=== PATIENT | female | born 1950 | race African-American/Black ===

== ENCOUNTER 2019-04-14 05:58 | Day surgery (SDC) | payer MEDICARE ==
[2019-04-14] MEDS ORDERED: FENTANYL PF 100MCG/2ML VIAL IV ONE (05:59)
[2019-04-14] MEDS ORDERED: CEFAZOLIN 1G VIAL IVP ONE (05:59)
[2019-04-14] MEDS ORDERED: MIDAZOLAM HCL 2MG/2ML VIAL IV ONE (05:59)
[2019-04-14] MEDS ORDERED: PROPOFOL 10 MG/ML VIAL IV ONE (05:59)
[2019-04-14] MEDS ORDERED: LIDOCAINE 2% MDV (20MG/ML) 20ML VIAL IV ONE (05:59)
[2019-04-14] MEDS ORDERED: FAMOTIDINE 20MG TABLET PO ONE (06:00)
[2019-04-14] MEDS ORDERED: METOCLOPRAMIDE 10 MG TABLET PO ONE (06:00)
[2019-04-14] MEDS ORDERED: MECLIZINE 25 MG TABLET PO ONE (06:00)
[2019-04-14] MEDS ORDERED: CEFAZOLIN 2 Gram 2 GM/50 ML BAG IVPB ONE (06:00)
[2019-04-14] MEDS ORDERED: ACETAMINOPHEN 1,000 MG/100 ML BTL IVPB ONE (06:00)
--- NOTE | 2019-04-14 06:35 | History and Physical - Ferro ---
CHIEF COMPLAINT/HISTORY OF CHIEF COMPLAINT: This patient presents with a history of intractable post lumbar laminectomy syndrome. Due to the failure of all therapies on 07/12/15 a spinal cord stimulator system was implanted with a generator placed at the right posterior gluteal margin and the incisional sites are at T11-T12 and T12-L1. Over time although the system appeared to be working quite well it has most recently failed. Electronic analysis showed failure of the system with multiple electrode failures and battery failure. She was given the option to remove or remove and replace and she opted to remove and replace. This will involve electrodes and generator. PAST MEDICAL HISTORY: Macular degeneration, headaches, chronic obstructive pulmonary disease, hypertension, thrombophlebitis and gastritis. PAST SURGICAL HISTORY: Gallbladder, hysterectomy, laparoscopic surgery, and stimulator implant. MEDICATIONS ON ADMISSION: List to be provided. ALLERGIES: SULFA. FAMILY/PSYCHOSOCIAL HISTORY: Family history - Hypothyroidism, asthma, diabetes, coronary artery disease, cerebrovascular disease, and hypertension. Social history - Caffeine. SYSTEMS REVIEW: The patient is appropriate in no acute distress. The remainder of the systems review is noted. PHYSICAL EXAMINATION: Height is 4'11", weight is 130. No vital signs. HEENT: Within normal limits. LUNGS: Clear. HEART: Rapid and regular. ABDOMEN: Nontender. MUSCULOSKELETAL: Examination of the musculoskeletal system shows diffuse tenderness throughout the lumbar spine. Range of motion does produce the primary pain into both lower extremities. Mild motor and mild sensory abnormalities to both legs. Ambulation - Assistive device utilized. NEUROLOGIC: Cranial nerves are intact. IMPRESSION: 1. POST LUMBAR LAMINECTOMY SYNDROME, ICD-10 CODE M96.1 WITH LUMBAR RADICULOPATHY, ICD-10 CODE M54.16 AND M54.17. 2. NONFUNCTIONAL SPINAL CORD STIMULATOR AND INTERNAL GENERATOR. PLAN: The patient is here for removal and replacement of the stimulator and generator on an outpatient basis although an overnight stay will be evaluated based upon the amount of surgery. The potential risks, side effects and complications have all been carefully reviewed and discussed. JOB NUMBER: [id number] [facility]
[2019-04-14] MEDS ORDERED: RINGERS SOLUTION,LACTATED 1,000 ML IV ONE ×2 (06:45→08:30)
[2019-04-14] MEDS ORDERED: BUPIVACAINE 0.5% W/EPI MPF 30 ML VIAL SQ ONE (08:30)
[2019-04-14] MEDS ORDERED: LIDOCAINE 1% W/EPI 1:100,000 MDV 20 ML VIAL SQ ONE (08:30)
[2019-04-14] MEDS ORDERED: HYDROMORPHONE HCL 2 MG/ML VIAL IVP ONE ×2 (09:32)
[2019-04-14] MEDS ORDERED: HYDROCODONE/APAP 7.5/325MG TABLET PO PRN (11:30)
[2019-04-14] MEDS: HYDROCODONE/APAP 7.5/325MG TABLET PO PRN ×2 (12:01→15:12)
[2019-04-14] MEDS ORDERED: SENNOSIDES/DOCUSATE SODIUM UD CAPSULE PO PRN ×2 (16:15)
[2019-04-14] MEDS ORDERED: METOCLOPRAMIDE HCL 10 MG/2 ML VIAL IVP PRN (16:15)
[2019-04-14] MEDS ORDERED: DIPHENHYDRAMINE HCL 50 MG/ML VIAL IVP PRN ×2 (16:15)
[2019-04-14] MEDS ORDERED: TEMAZEPAM 15 MG CAPSULE PO PRN (16:15)
[2019-04-14] MEDS ORDERED: ACETAMINOPHEN 325 MG TAB PO PRN (16:15)
[2019-04-14] MEDS ORDERED: DIPHENHYDRAMINE HCL 25 MG CAPSULE PO PRN ×2 (16:15)
[2019-04-14] MEDS ORDERED: AL HYDROX/MAG HYDROX 30ML UD PO PRN (16:15)
[2019-04-14] MEDS ORDERED: HYDROMORPHONE HCL 2 MG/ML VIAL IM PRN ×2 (16:15)
[2019-04-14] MEDS ORDERED: METOCLOPRAMIDE 10 MG TABLET PO PRN (16:15)
[2019-04-15] MEDS ORDERED: PANTOPRAZOLE SODIUM 40 MG TABLET PO SCH (07:00)
[2019-04-15] MEDS ORDERED: COLCHICINE 0.6 MG TABLET PO SCH (10:00)
[2019-04-15] MEDS ORDERED: LOSARTAN POTASSIUM 25 MG TABLET PO SCH (10:00)
[2019-04-15] MEDS ORDERED: ATORVASTATIN 20 MG TABLET PO SCH (10:00)
--- NOTE | 2019-04-16 08:01 | Operative Note ---
DATE OF SURGERY: 04/14/2019 PREOPERATIVE DIAGNOSES: 1. Post lumbar laminectomy syndrome, ICD10 code M96.1 with radiculopathy, ICD10 code M54.16 and M54.17. 2. Implanted spinal cord stimulator internal generator nonfunctional. OPERATION: 1. Fluoroscopic-guided incision and subcutaneous dissection and removal of 2 implanted spinal cord stimulators. 2. Incision, subcutaneous dissection, and removal of internal pulse generator right posterior gluteal margin. 3. Epidural access T11-12 using Epimed curved access needle, loss of resistance, inadvertent dural puncture with CSF loss. 4. Fluoroscopic-guided reinsertion curved Epimed needle T11-12, placement of spinal cord stimulator lead 1 [employer] Infinion 16, 6 electrodes. 5. Fluoroscopic-guided epidural access using curved Epimed needle T12-L1, placement of spinal cord stimulator lead 2 [employer] Infinion 16, 6 electrodes. 6. Navigation of lead 1 and lead 2 to skin, difficulty with the inability to navigate leads to appropriate location. 7. Removal of 2 epidural leads. 8. Epidural blood patch 20 mL autologous blood stroke technique from the left antecubital at L3-4, 18-gauge Tuohy needle, loss of resistance for access. 9. Placement of dressings after Vicryl and staple closure of 2 incisional sites for previous removal. SURGEON: Baudilio Barrios, ANESTHESIA: Local with sedation. ANESTHESIA PROVIDER: Thomas uBrch INDICATION: This patient presents with a history of an intractable post lumbar laminectomy syndrome and a 2-lead spinal cord stimulator internal generator placed approximately 2-3 years ago. Over the last number of years, the system has started to malfunction. Initial placement 2014. Shew as given the option to remove or replace. She opted to replace. PROCEDURE: Intravenous line, vital sign monitoring, IV sedation. Prepped and draped with sterile technique. Patient positioned prone. Sterile prep, sterile technique. The epidural interspace at T12-L1 and 11-12 from the previous insertion infiltrated. Incision made and subcutaneous dissection was conducted to the 2 leads and the anchoring suture. The sutures removed, the 2 leads removed intact. At the right posterior gluteal margin generator pouch, skin infiltrated, incision made, and subcutaneous dissection was used to remove the generator intact. Antibiotic irrigation, Bovie for hemostasis. The epidural interspace at the previous sites T11-12 and 12-1 were then both infiltrated using 2 curved access Epimed needles with loss of resistance. At 11-12, the space was accessed with an inadvertent dural puncture and CSF loss. [place] reposition, re-accessed the space. Spinal cord stimulator lead 1, a [employer] Infinion 16, 6 electrodes was advanced, positioned using AP and lateral imaging in the epidural space. At 12-1, which was one level below, a curved access Epimed needle with loss of resistance was used to gain entry in to the space, and spinal cord stimulator lead 2, also [employer] Infinion 16, 6 electrodes advanced into the space. Using AP and lateral imaging, the leads were navigated. Navigation was difficult and complicated. A significant amount of resistance was noted. There was a tendency for the leads to move lateral and anterior. Multiple attempts at repositioning and re-navigating the leads continued to result in a lateral motion and lateral movement and an anterior placement. At that point, it was felt because of the dural puncture and the amount of time required and the inability to gain appropriate access with the leads that the surgery was at that point terminated, canceled. The leads were removed. Antibiotic irrigation and Bovie for hemostasis. The 2 previous incisions were closed using nylon suture for fascia and radha for skin. Appropriate dressings placed. Transported to the recovery room. Because of the epidural patch, she will stay flat for 4, slowly elevated for 1, and then be considered a candidate for discharge. DISCHARGE INSTRUCTIONS: 1. The sites to remain clean and dry. No showering or bathing in any way that would disrupt the dressings. If it happens, contact the clinic. 2. Standard medications resumed including the antibiotic Levaquin. She will take 500 mg once a day for 14 days. 3. She will be seen in the office in the next 7-10 days. She should keep her activities low. Contact the clinic with any problems including pain or headache. All other instructions provided, numbers to contact if problems given. She will be evaluated. She had no unusual motor or sensory abnormalities in the recovery room, was not demonstrating any unusual pain patterns of deficits. VALENTINE
== END 2019-04-14 18:00 | disposition home or self-care (01) ==
LOC: SUR 05:58 → MEDSURG 10:40 → SUR 18:00
PROVIDERS: ATTEND Pain Medicine Interventional Pain Medicine
DX: T85.193A Other mechanical complication of implanted electronic neurostimulator, generator, initial encounter (principal); M54.16 Radiculopathy, lumbar region; M54.17 Radiculopathy, lumbosacral region; I10 Essential (primary) hypertension; E78.00 Pure hypercholesterolemia, unspecified; J45.909 Unspecified asthma, uncomplicated; Z86.73 Personal history of transient ischemic attack (TIA), and cerebral infarction without residual deficits; Z86.711 Personal history of pulmonary embolism
CPT/HCPCS: 63661; 63688; 62273; 01936; C1883; J3010; J1170; J0690; 95972; J7120

== ENCOUNTER 2019-05-26 11:20 | Day surgery (SDC) | payer MEDICARE ==
--- NOTE | 2019-05-26 06:23 | History and Physical - Ferro ---
CHIEF COMPLAINT/HISTORY OF CHIEF COMPLAINT: This patient presents with a history of intractable post lumbar laminectomy radiculopathy. Due to the failure of therapy, a spinal cord stimulator trial was conducted with an implant performed. For a number of years this appeared to be working quite well. Recently the system began to malfunction and an attempted revision was unsuccessful and the system was removed. She is here due to the failure of all therapies for an implanted spinal catheter infusion trial with Hydromorphone to determine if the implantation of a permanent system can be of any value in pain control. PAST MEDICAL HISTORY: Macular degeneration, headaches, chronic obstructive pulmonary disease, hypertension, thrombophlebitis, and gastritis. PAST SURGICAL HISTORY: Gallbladder, hysterectomy, laparoscopic surgery, and stimulator implant removal. MEDICATIONS ON ADMISSION: List to be provided. ALLERGIES: SULFA. FAMILY/PSYCHOSOCIAL HISTORY: Family history - Hypothyroidism, asthma, diabetes, coronary artery disease, cerebrovascular disease, and hypertension. SYSTEMS REVIEW: The patient is appropriate in no acute distress. The remainder of the systems review is noncontributory. PHYSICAL EXAMINATION: Height is 5'11", weight is 130. No vital signs. HEENT: Within normal limits. LUNGS: Clear. HEART: Rapid and regular. ABDOMEN: Nontender. MUSCULOSKELETAL: Examination of the musculoskeletal system shows diffuse tenderness throughout the lumbar spine adjacent to the laminectomy scar. Range of motion produces pain into both legs across the back surface. Motor and sensory field function is difficult to assess here, it appears to be mild weakness and mild sensory loss bilaterally. Ambulation - No assistive device utilized. NEUROLOGIC: Cranial nerves are intact. IMPRESSION: POST LUMBAR LAMINECTOMY SYNDROME, ICD-10 CODE M96.1, WITH RADICULOPATHY, ICD-10 CODE M54.16 AND M54.17. PLAN: The patient is here for an implanted spinal catheter infusion trial of Hydromorphone to determine if the implantation of a permanent system can be of any value in pain control. The potential risks, side effects and complications have all been reviewed and discussed. She was put in contact with a clinical specialist who reviewed the procedure and its risks. The implanted catheter will require an epidural blood patch. She will be kept flat for four hours and slowly elevated for one. She will be kept overnight for observation and discharged in the morning. All questions were answered. JOB NUMBER: [id number] [facility]
[~2019-05-26 11:20] MED LIST: ACETAMINOPHEN 1,000 MG/100 ML BTL IVPB ONE; CEFAZOLIN 2 Gram 2 GM/50 ML BAG IVPB ONE; FAMOTIDINE 20MG TABLET PO ONE; HYDROMORPHONE PF 2MG/ML AMP 0.008 MG in 0.9 % SODIUM CHLORIDE 10ML VIA 0.996 ML IV ONE; HYDROMORPHONE PF 2MG/ML AMP 8 MG in 0.9 % SODIUM CHLORIDE 500ML 496 ML IV ONE; MECLIZINE 25 MG TABLET PO ONE; METOCLOPRAMIDE 10 MG TABLET PO ONE
[2019-05-26] MEDS ORDERED: LIDOCAINE 2% MDV (20MG/ML) 20ML VIAL IV ONE (11:21)
[2019-05-26] MEDS ORDERED: MIDAZOLAM HCL 2MG/2ML VIAL IV ONE (11:21)
[2019-05-26] MEDS ORDERED: FENTANYL PF 100MCG/2ML VIAL IV ONE (11:21)
[2019-05-26] MEDS ORDERED: PROPOFOL 10 MG/ML VIAL IV ONE (11:21)
[2019-05-26] MEDS ORDERED: 0.9 % SODIUM CHLORIDE 1000ML 1,000 ML IV ONE (12:09)
[2019-05-26] MEDS ORDERED: RINGERS SOLUTION,LACTATED 1,000 ML IV ONE (12:09)
[2019-05-26] MEDS ORDERED: LIDOCAINE 1% W/EPI 1:100,000 MDV 20 ML VIAL SQ ONE (12:45)
[2019-05-26] MEDS ORDERED: BUPIVACAINE 0.5% W/EPI MPF 30 ML VIAL SQ ONE (12:45)
[2019-05-26] MEDS ORDERED: CEFAZOLIN 1G VIAL IR ONE (12:46)
[2019-05-26] MEDS ORDERED: HYDROMORPHONE HCL 2 MG/ML VIAL IM ONE (13:38)
[2019-05-26] MEDS ORDERED: CAFFEINE/SODIUM BENZOATE 250MG 500 MG in 0.9 % SODIUM CHLORIDE 100ML 100 ML IVPB ONE (13:44)
[2019-05-26] MEDS ORDERED: HYDROMORPHONE HCL 2 MG/ML VIAL IM PRN ×2 (15:00)
[2019-05-26] MEDS ORDERED: ACETAMINOPHEN 325 MG TAB PO PRN (15:00)
[2019-05-26] MEDS ORDERED: TEMAZEPAM 15 MG CAPSULE PO PRN (15:00)
[2019-05-26] MEDS ORDERED: DIPHENHYDRAMINE HCL 50 MG/ML VIAL IVP PRN ×2 (15:00)
[2019-05-26] MEDS ORDERED: AL HYDROX/MAG HYDROX 30ML UD PO PRN (15:00)
[2019-05-26] MEDS ORDERED: METOCLOPRAMIDE HCL 10 MG/2 ML VIAL IVP PRN (15:00)
[2019-05-26] MEDS ORDERED: SENNOSIDES/DOCUSATE SODIUM UD CAPSULE PO PRN ×2 (15:00)
[2019-05-26] MEDS ORDERED: OXYCODONE/APAP 10MG-325MG TABLET PO PRN ×2 (15:00)
[2019-05-26] MEDS ORDERED: DIPHENHYDRAMINE HCL 25 MG CAPSULE PO PRN (15:00)
[2019-05-26] MEDS ORDERED: METOCLOPRAMIDE 10 MG TABLET PO PRN (15:00)
[2019-05-26] MEDS ORDERED: NALOXONE 0.4 MG/1 ML VIAL IVP PRN (15:00)
[2019-05-26] MEDS ORDERED: HYDROCODONE/APAP 7.5/325MG TABLET PO PRN ×2 (15:00)
[2019-05-26] MEDS: 0.9 % SODIUM CHLORIDE 1000ML 1,000 ML IV SCH (15:57)
[2019-05-26] MEDS: OMEPRAZOLE 40MG PO SCH (17:51)
[2019-05-26] MEDS ORDERED: CAFFEINE/SODIUM BENZOATE 250MG 500 MG in 0.9 % SODIUM CHLORIDE 100ML 100 ML IVP ONE (19:00)
[2019-05-26] MEDS: CEFAZOLIN 2 Gram 2 GM/50 ML BAG IVPB SCH (21:11)
[2019-05-26] MEDS: OPTH OPTH SCH (21:16)
[2019-05-26] MEDS: AZOPT 1% OPTH SCH (21:16)
[2019-05-26] MEDS ORDERED: LATANOPROST 0.005% OPTH SCH (22:00)
[2019-05-26] MEDS ORDERED: OPTH OPTH SCH (22:00)
[2019-05-27] MEDS: 0.9 % SODIUM CHLORIDE 1000ML 1,000 ML IV SCH ×3 (00:05→06:31)
[2019-05-27] MEDS: DIPHENHYDRAMINE HCL 25 MG CAPSULE PO PRN ×2 (02:11→09:33)
[2019-05-27] MEDS: CEFAZOLIN 2 Gram 2 GM/50 ML BAG IVPB SCH (03:35)
[2019-05-27] MEDS: OMEPRAZOLE 40MG PO SCH (06:34)
--- NOTE | 2019-05-27 08:22 | Operative Note - Ferro ---
DATE OF SURGERY: 05/26/2019 PREOPERATIVE DIAGNOSIS: POST LUMBAR LAMINECTOMY SYNDROME, ICD-10 CODE M96.1 WITH LUMBAR RADICULOPATHY, ICD-10 CODE M54.16 AND M54.17. OPERATION: 1. FLUOROSCOPICALLY GUIDED ACCESS SPINAL SPACE AT L3-L4 PLACEMENT OF SMALL SPINAL CATHETER T12. 2. DIAGNOSTIC MYELOGRAPHY WITH RADIOLOGIC SUPERVISION AND INTERPRETATION. 3. SPINAL OPIOID BOLUS HYDROMORPHONE 0.004 MG. 4. INCISION, SUBCUTANEOUS DISSECTION, AND ANCHORING OF SPINAL CATHETER TO THE SUPRASPINOUS FASCIA WITH ANCHORING DEVICE NONABSORBABLE SUTURE. 5. INCISION, SUBCUTANEOUS DISSECTION, AND CREATION OF SUBCUTANEOUS POUCH AT LEFT FLANK FOR PLACEMENT OF PUMP IDENTIFIED MEDTRONIC 20 ML PROGRAMMABLE SHOULD TRIAL SUCCEED. 6. TUNNELLING BETWEEN MIDLINE SPINAL CATHETER POUCH INTO FLANK POUCH, INTERFACE SPINAL CATHETER WITH SECOND CATHETER COMPONENT BY WAY OF CONNECTOR. 7. TUNNELLING SECONDARY CATHETER COMPONENTS 6 CM SUPERIOR FLANK POUCH EXITING SKIN, INTERFACED EXTERNAL PUMP SET TO DELIVER HYDROMORPHONE AT 0.12 MG A DAY. 8. CLOSURE OF MIDLINE INCISION USING STRATAFIX SUTURE 2-0 FASCIA, AND 3-0 SKIN. DERMABOND CLOSURE. CLOSURE OF LEFT FLANK POUCH USING RUNNING NYLON. 9. NO EPIDURAL BLOOD PATCH BECAUSE OF FUSION HARDWARE L4-L5 AND L5-S1. PATIENT TRANSPORTED TO THE RECOVERY ROOM FLAT WITH PILLOW UNDER HEAD AND KNEES. SURGEON: Baudilio Barrios D.O. ANESTHESIA: Local sedation. ANESTHESIA PROVIDER: Thomas Burch CRNA INDICATION: This patient presents with a history of an intractable post lumbar laminectomy radiculopathy. Due to the failure of therapy, the patient is here for an implanted spinal catheter infusion trial of Hydromorphone to determine if the implantation of a permanent system can be of any value in pain control. PROCEDURE: Intravenous line, vital sign monitoring, IV sedation by Anesthesia. The patient was positioned prone. Sterile prep, sterile technique. The spinal interspace at the level above the hardware L3-L4 is marked and infiltrated with a 20-gauge spinal needle beveled long axis paramedian approach using AP and lateral imaging for access. Access provided on lateral image with CSF flow, thin walled spinal catheter was advanced and positioned at T12. Diagnostic myelography was performed and the resulting flow characteristics were smooth and linear in the space. Appropriate flow characteristics are identified. With this confirmation a bolus of Hydromorphone at 0.004 mg was given into the spinal space. The catheter was clamped, CSF still noted coming through the catheter. The above and below the needle was infiltrated, an incision made and subcutaneous dissection was conducted to the supraspinous fascia. The needle was removed and the catheter was anchored to the supraspinous fascia with a Bioincepttronic anchor and nonabsorbable suture. At the left flank a site picked by the patient for the eventual pump placement skin infiltrated, an incision made and subcutaneous dissection was conducted to form a pouch of suitable size and depth for the pump. A tunnelling tool was used to carry the spinal catheter into the pouch on the flank, this catheter was then interfaced with the second catheter component by way of a connector. The second catheter component was then tunnelled 6 cm superior exiting the skin. The external catheter component was then interfaced with an external pump which was set to deliver Hydromorphone at 0.12 mg a day. The midline incision was closed using Stratafix suture 2-0 fascia and 3-0 skin. Dermabond closure. The left flank pouch was closed with a running nylon. No epidural blood patch was performed because of the extensive surgery and the lack of access. Intravenous caffeine protocol was used intraoperatively and will be used postoperatively on the floor. Dressings were placed securing the catheter at all connections under the sterile dressing. The infusion was started at 0.12 mg a day. She was transported to the Recovery Room flat, pillow under the knees, dressing has been placed securing the catheter at all connections as were the incisions under sterile dressing. She was stable. She had full functionality of her extremities. No unusual pain pattern. She will be kept overnight for observation, kept flat for four and slowly elevated for one. In the morning she will be discharged. DISCHARGE INSTRUCTIONS: 1. The sites are to remain clean and dry. No showering or bathing in any way that would disrupt the dressings. If it happens contact the clinic. 2. Standard medications will be resumed including the antibiotic Levaquin, she will take 500 mg once a day for fourteen days. 3. Three increases will be set for the fourteen day trial period, her first increase will happen as quickly as 2-3 days from today. We will monitor her progress. At the end of the trial period two weeks we will either implant the pump interfacing it to the indwelling catheter or remove the implanted catheter. She will be monitored and then discharged home. JOB NUMBER: [id number] [facility]
[2019-05-27] MEDS: OPTH OPTH SCH (09:35)
[2019-05-27] MEDS: AZOPT 1% OPTH SCH (09:35)
[2019-05-27] MEDS ORDERED: LOSARTAN 50MG PO SCH (10:00)
[2019-05-27] MEDS ORDERED: COLCHICINE 0.6 MG PO SCH (10:00)
[2019-05-27] MEDS ORDERED: D3 PO SCH (10:00)
[2019-05-27] MEDS ORDERED: B12 1000MCG PO SCH (10:00)
--- NOTE | 2019-05-27 16:19 | RADIOLOGY REPORT ---
EXAMINATION: Thoracolumbar Spine Single View EXAM DATE: 05/26/2019 1:44 PM TECHNIQUE: AP view INDICATION: S/P PAIN PUMP TRIAL, CATH TIP T-11 COMPARISON: 07/12/2015 ENCOUNTER: Initial FINDINGS: L4-S1 bipedicular fixation. Inferior vena cava filter is present with the apex at the L2-L3 interspac e. Catheter material projects over the upper abdomen. Catheter tip is at the superior aspect of T12. Vascular calcifications. Surgical clips in the right upper quadrant. Surgical clips in the left abdom en. Prominent fecal loading of the colon. IMPRESSION: Catheter tip at the T12 level. Possible constipation. Dictated by: Prieto Vazquez MD on 05/27/2019 3:38 PM. .
== END 2019-05-27 09:30 | disposition home or self-care (01) ==
LOC: SUR 11:20 → MEDSURG 14:31 → SUR 05-27 09:30
PROVIDERS: ATTEND Pain Medicine Interventional Pain Medicine
DX: M96.1 Postlaminectomy syndrome, not elsewhere classified (principal); M54.16 Radiculopathy, lumbar region; M54.17 Radiculopathy, lumbosacral region; I10 Essential (primary) hypertension; H40.9 Unspecified glaucoma; J45.909 Unspecified asthma, uncomplicated; N18.4 Chronic kidney disease, stage 4 (severe)
CPT/HCPCS: 72020; J0690; J1170; J3490; J7030; J7040; J7120

== ENCOUNTER 2019-06-02 10:10 | Day surgery (SDC) | payer MEDICARE ==
--- NOTE | 2019-06-02 07:03 | History and Physical - Ferro ---
CHIEF COMPLAINT/HISTORY OF CHIEF COMPLAINT: This patient with a history of a post lumbar laminectomy syndrome has an implanted catheter infusion trial with Hydromorphone, although initially 75% relief was achieved, over the last 24-48 hours this patient appears to have had increasing amounts of pain. Rather than request the implant she is requesting removal. PAST MEDICAL HISTORY: Unchanged. PAST SURGICAL HISTORY: Unchanged. MEDICATIONS ON ADMISSION: Unchanged. ALLERGIES: SULFA. FAMILY/PSYCHOSOCIAL HISTORY: Family history - Unchanged. Social history - Unchanged. SYSTEMS REVIEW: The patient seems appropriate in no acute distress. PHYSICAL EXAMINATION: Height is 5'11", weight is 130. No vital signs. HEENT: Within normal limits. LUNGS: Clear. HEART: Rapid and regular. ABDOMEN: Nontender. MUSCULOSKELETAL: Examination of the musculoskeletal system shows the dressings for the implanted catheter trial to be intact. The infusion device is currently infusing appropriately. Underlying pain pattern post laminectomy with bilateral lower extremity radiculopathy unchanged. NEUROLOGIC: Unchanged. IMPRESSION: POST LUMBAR LAMINECTOMY SYNDROME, ICD-10 CODE M96.1, WITH RADICULOPATHY, ICD-10 CODE M54.16 AND M54.17. PLAN: As stated although we had 75% relief going into the weekend, subsequently the patient indicating she had return of her pain and wants the trial discontinued. She is here for removal of the implanted catheter trial on an outpatient basis. JOB NUMBER: [id number] [facility]
[~2019-06-02 10:10] MED LIST changes: +HYDROMORPHONE HCL 0.04 GM in 0.9 % SODIUM CHLORIDE 10ML VIA 20 ML IV ONE; -HYDROMORPHONE PF 2MG/ML AMP 8 MG in 0.9 % SODIUM CHLORIDE 500ML 496 ML IV ONE
[2019-06-02] MEDS ORDERED: FENTANYL PF 100MCG/2ML VIAL IV ONE (10:11)
[2019-06-02] MEDS ORDERED: MIDAZOLAM HCL 2MG/2ML VIAL IV ONE (10:11)
[2019-06-02] MEDS ORDERED: PROPOFOL 10 MG/ML VIAL IV ONE (10:11)
[2019-06-02] MEDS ORDERED: LIDOCAINE 2% MDV (20MG/ML) 20ML VIAL IV ONE (10:11)
[2019-06-02] MEDS ORDERED: 0.9 % SODIUM CHLORIDE 1000ML 1,000 ML IV ONE (11:29)
[2019-06-02] MEDS ORDERED: LIDOCAINE 1% W/EPI 1:200,000 MPF 30ML SQ ONE ×2 (13:13)
[2019-06-02] MEDS ORDERED: BUPIVACAINE 0.5% W/EPI MPF 30 ML VIAL SQ ONE ×2 (13:13)
[2019-06-02] MEDS ORDERED: CEFAZOLIN 1G VIAL IR ONE (13:13)
[2019-06-02] MEDS ORDERED: HYDROCODONE/APAP 7.5/325MG TABLET PO ONE (14:17)
--- NOTE | 2019-06-02 19:26 | RADIOLOGY REPORT ---
EXAMINATION: Lumbar spine, one view EXAM DATE: 06/02/2019 2:44 PM TECHNIQUE: AP view of the lumbar spine INDICATION: PAIN PUMP IMPLANT COMPARISON: Lumbar spine radiographs 05/26/2019 ENCOUNTER: Initial FINDINGS/IMPRESSION: Lumbar pain pump catheter with tip terminating just below the superior endplate of T12. No apparent k inking or interruptions along the visualized course of the catheter. Posterior lumbosacral fusion, as before. Dictated by: Conchita Mane MD on 06/02/2019 7:23 PM. .
--- NOTE | 2019-06-03 08:48 | Operative Note - Ferro ---
DATE OF SURGERY: 06/02/2019 PREOPERATIVE DIAGNOSIS: 1. POST LUMBAR LAMINECTOMY SYNDROME, ICD-10 CODE M96.1 WITH LUMBAR RADICULOPATHY, ICD-10 CODE M54.16 AND M54.17. 2. IMPLANTED SPINAL CATHETER INFUSION TRIAL HYDROMORPHONE. OPERATION: 1. FLUOROSCOPICALLY GUIDED INCISION, SUBCUTANEOUS DISSECTION, AND REMOVAL OF EXTERNAL CATHETER INTERFACED INTERNAL CATHETER. 2. INCISION, SUBCUTANEOUS DISSECTION AND CREATION OF SUBCUTANEOUS POUCH AT LEFT POSTERIOR GLUTEAL MARGIN, PLACEMENT OF PUMP IDENTIFIED MEDTRONIC 20 ML PROGRAMMABLE. 3. INCISION, SUBCUTANEOUS DISSECTION, AND CREATION OF SUBCUTANEOUS POUCH LEFT FLANK IDENTIFICATION OF INTERNAL SPINAL CATHETER, REVISION AND RESECTION OF INTERNAL SPINAL CATHETER, INTERFACED WITH SECOND CATHETER COMPONENT BY WAY OF CONNECTOR. 4. PLACEMENT OF 20 ML PROGRAMMABLE MEDTRONIC PUMP ON FIELD, PREFILLED HYDROMORPHONE 2 MG PER ML, INTERFACED WITH REVISED SPINAL CATHETER. 5. PLACEMENT OF PUMP AND REVISED CATHETER INTO POUCH LEFT POSTERIOR GLUTEAL MARGIN SECURING TO POSTERIOR FASCIA THREE POINTS PUMP EYELETS NONABSORBABLE SUTURE. 6. WITH PUMP IN POUCH PLACEMENT OF CURVED 24-GAUGE LONG NEEDLE INTO ACCESS PORT ASPIRATION CLEARING 1 ML CATHETER CONTENTS CLEARING CATHETER OF OPIOID AND CSF MIXTURE. 7. DIAGNOSTIC MYELOGRAPHY WITH RADIOLOGIC SUPERVISION AND INTERPRETATION CONFIRMING FUNCTIONALITY OF THE SYSTEM AND PATENCY OF CATHETER. 8. CLOSURE OF INCISIONS USING STRATAFIX SUTURE 2-0 FASCIA AND 3-0 SKIN. DERMABOND CLOSURE. 9. PROGRAMMING OF PUMP TO DELIVER BY CONTINUOUS INFUSION HYDROMORPHONE AT 0.12 MG A DAY HYDROMORPHONE. SURGEON: Baudilio Barrios D.O. ANESTHESIA: Local sedation. ANESTHESIA PROVIDER: NAIDA Falcon CRNA INDICATION: This patient presents with a history of an intractable post lumbar laminectomy radiculopathy. Due to the failure of therapy, an implanted spinal catheter infusion trial with Hydromorphone was conducted with 75-85% pain control. Due to the success of the trial and the failure of all other therapies, she is here for a permanent implantation. During the trial period, she was on Levaquin, had side effects, this was changed to Keflex and tolerated well. Again here for permanent implantation. PROCEDURE: Intravenous line, vital sign monitoring, IV sedation, prepped and draped, sterile technique. The patient was positioned prone. Sterile prep, sterile technique. All of the externalized dressing was removed. Under imaging at the left posterior gluteal margin the skin was infiltrated, incision made, and subcutaneous dissection was conducted to form a pouch of suitable size and depth for the pump, a 20 ml programmable Medtronic. At the site the externalized catheter connection to the internal catheter was cut, the external catheter removed pulling away from the incision. The internal catheter was then revised and resected with a second catheter component by way of a connector. Antibiotic irrigation, Bovie for hemostasis. A 20 ml programmable Medtronic pump was placed onto the field, prefilled Hydromorphone 2 mg per ml, the revised catheter was interfaced to the pump. The pump catheter combination was placed into the pouch and secured to the posterior fascia with nonabsorbable suture through the pump eyelets. With the pump in the pouch a 24-gauge Long needle was inserted into the access port, catheter already been cleared, contrast was then injected, the resulting myelogram with radiologic supervision and interpretation showed appropriate flow characteristics confirming functionality of the system with the tip of the catheter at T11-T12. The needle was removed and then the incision was closed using Stratafix suture 2-0 fascia and 3-0 skin. Dermabond closure was then used to approximate the edges of the wound. The pump was then programmed to deliver by continuous infusion of Hydromorphone at 0.12 mg a day. The patient tolerated the procedure well without difficulty. The patient was transported to the Recovery Room stable. No side effects from the procedure or sedation. By request she was prepared for discharge. DISCHARGE INSTRUCTIONS: 1. The sites are to remain clean and dry, although the Dermabond will allow showering she should not sit in water. 2. Standard medications will be resumed . She has provided a prescription for [place] for incisional pain management and antibiotic Levaquin 500 mg four times a day has also been provided for ten days. 3. Spinal opioid side effects: respiratory depression, nausea, vomiting, constipation, urinary retention and rash have all been reviewed and discussed. Office to contact the patient in 12-24 hours to set up a time in 7-10 days for us to evaluate the sites, until then she is to keep her activities well controlled. All other instructions provided. Numbers to contact if problems given. She was then discharged. JOB NUMBER: [id number] [facility]
== END 2019-06-02 14:43 | disposition home or self-care (01) ==
LOC: SUR 10:10
PROVIDERS: ATTEND Pain Medicine Interventional Pain Medicine
DX: M54.16 Radiculopathy, lumbar region (principal); M54.17 Radiculopathy, lumbosacral region; I10 Essential (primary) hypertension; H40.9 Unspecified glaucoma; J45.909 Unspecified asthma, uncomplicated; G47.33 Obstructive sleep apnea (adult) (pediatric); Z86.711 Personal history of pulmonary embolism; E11.9 Type 2 diabetes mellitus without complications; N19 Unspecified kidney failure; N18.4 Chronic kidney disease, stage 4 (severe)
CPT/HCPCS: 62367; 72020; C1755; C1776; J0690; J7030